=== PATIENT | female | born 1980 | race Caucasian/White ===

== ENCOUNTER 2016-08-17 17:14 | Emergency (ER) | payer BC | END 2016-08-17 19:09 | disposition left against medical advice (07) | LOC: UCCORT 17:14 | DX: R51 Headache (principal); R11.0 Nausea; Z53.21 Procedure and treatment not carried out due to patient leaving prior to being seen by health care provider ==

== ENCOUNTER 2016-08-17 20:23 | Emergency (ER) | payer BC ==
[2016-08-17 22:12] VITALS: BP 109/75
--- NOTE | 2016-08-17 22:50 | UC ---
Headache HPI - History Of Current Complaint Chief Complaint: UCGeneralIllness Stated Complaint: HEADACHE Time Seen by Provider: 08/17/16 22:50 Hx Last Menstrual Period: 08/13/16 - Allergies/Home Medications Allergies/Adverse Reactions: Allergies Allergy/AdvReac Type Severity Reaction Status Date / Time No Known Allergies Allergy Verified 08/17/16 22:12 Home Medications: Home Medications Ibuprofen TAB* [Advil TAB*] 600 mg PO Q6H PRN 08/17/16 [History Confirmed ] Levonorgestrel-Ethinyl Estradi [Seasonique] 1 tab PO DAILY 08/17/16 [History Confirmed 08/17/16] Meloxicam [Mobic] 7.5 mg PO DAILY PRN 08/17/16 [History Confirmed 08/17/16] PMH/Surg Hx/FS Hx/Imm Hx Endocrine History Of: Denies: Diabetes Cardiovascular History Of: Denies: Hypertension, Pacemaker/ICD Respiratory History Of: Reports: Asthma GI/ History Of: Denies: Renal Disease - Surgical History Surgical History: Yes Surgery Procedure, Year, and Place: WISDOM TEETH REMOVED - Social History Alcohol Use: Occasionally Substance Use Type: None Smoking Status (MU): Never Smoked Tobacco - Immunization History Most Recent Influenza Vaccination: Not the Season Physical Exam Vital Signs: Initial Vital Signs Temp 99.3 F 08/17/16 22:04 Pulse 74 08/17/16 22:04 Resp 16 08/17/16 22:04 BP 109/75 08/17/16 22:04 Pulse Ox 100 08/17/16 22:04
[2016-08-17] MEDS ORDERED: Prochlorperazine TAB* 10 MG PO ONE (23:11)
[2016-08-17] MEDS ORDERED: Prochlorperazine TAB* 5 MG ONE (23:14)
--- NOTE | 2016-08-17 23:43 | UC ---
Headache HPI - HPI Summary HPI Summary: PATIENT ARRIVES WITH CC OF MIGRAINE BOLANOS, DIZZINESS, HEAD PRESSURE, NAUSEA, PHOTOPHOBIA AND PHONOPHOBIA. SHE STATES SHE HAS NEVER BEEN DIAGNOSED WITH MIGRAINES BEFORE, BUT STATES SHE MAY HAVE THEM D/T HER SYMPTOMS. SHE DOES HAVE SEVERE ALLERGIES AND FOR SEVERAL YEARS WAS GETTING ALLERGY SHOTS WEEKLY UNTIL SHE WAS UNABLE TO AFFORD IT. SINCE THEN, SHE HAS BEEN TRYING TO GET BY WITH CLARITIN. SHE STATES THIS FEELS VERY SIMILAR TO HER PREVIOUS ALLERGY SYMPTOMS. DENIES V/D/C BUT ENDORSES NAUSEA. DENIES AURAS OR SCOTOMAS. BOLANOS IS LOCATED POSTERIORLY OVER OCCIPITAL LOBE. SHE STATES IT FEELS LIKE A SINUS INFECTION, BUT DENIES RHINNORHEA OR SPUTUM PRODUCTION. - History Of Current Complaint Chief Complaint: UCGeneralIllness Stated Complaint: HEADACHE Time Seen by Provider: 08/17/16 22:50 Hx Obtained From: Patient Hx Last Menstrual Period: 08/13/16 ?: No Onset/Duration: Sudden Onset Onset Of Symptoms: Sudden Initially Headache Was: Initial Pain Scale(0-10)= - 8 Currently Pain Is: Current Pain Scale(0-10)= - 6 Pain Intensity: 6 Pain Scale Used: 0-10 Numeric Timing: Intermittent, Lasting: - 30 MIN Character: Pressure Location of Headache: Occipital Aggravating Factor: Bright Lights Allevating Factors: Medication - IBUPROFEN Associated Signs And Symptoms: Positive: Dizziness, Nausea - Risk Factors SAH Risk Factors: Negative, Smoking SDH Risk Factors: Negative Temporal Arteritis Risk Factors: Negative - Allergies/Home Medications Allergies/Adverse Reactions: Allergies Allergy/AdvReac Type Severity Reaction Status Date / Time No Known Allergies Allergy Verified 08/17/16 22:12 Home Medications: Home Medications Ibuprofen TAB* [Advil TAB*] 600 mg PO Q6H PRN 08/17/16 [History Confirmed ] Levonorgestrel-Ethinyl Estradi [Seasonique] 1 tab PO DAILY 08/17/16 [History Confirmed 08/17/16] Meloxicam [Mobic] 7.5 mg PO DAILY PRN 08/17/16 [History Confirmed 08/17/16] PMH/Surg Hx/FS Hx/Imm Hx Previously Healthy: Yes Endocrine History Of: Denies: Diabetes Cardiovascular History Of: Denies: Hypertension, Pacemaker/ICD Respiratory History Of: Reports: Asthma GI/ History Of: Denies: Renal Disease - Surgical History Surgical History: Yes Surgery Procedure, Year, and Place: WISDOM TEETH REMOVED - Social History Occupation: Employed Full-time Lives: With Family Alcohol Use: Occasionally Substance Use Type: None Smoking Status (MU): Never Smoked Tobacco - Immunization History Most Recent Influenza Vaccination: Not the Season Review of Systems Constitutional: Fatigue Skin: Negative Eyes: Photophobia ENT: Negative, Other - SINUS PRESSURE AND EAR PAIN Respiratory: Negative Cardiovascular: Negative Motor: Negative Musculoskeletal: Negative Neurological: Headache All Other Systems Reviewed And Are Negative: Yes Physical Exam Triage Information Reviewed: Yes Appearance: Well-Appearing, No Pain Distress, Well-Nourished Vital Signs: Initial Vital Signs Temp 99.3 F 08/17/16 22:04 Pulse 74 08/17/16 22:04 Resp 16 08/17/16 22:04 BP 109/75 08/17/16 22:04 Pulse Ox 100 08/17/16 22:04 Vital Signs Reviewed: Yes Eye Exam: Normal Eyes: Positive: Conjunctiva Clear ENT: Positive: Normal ENT inspection, Pharynx normal, TMs normal Dental Exam: Normal Neck exam: Normal Neck: Positive: Supple, Nontender, No Lymphadenopathy Respiratory Exam: Normal Respiratory: Positive: Chest non-tender, Lungs clear Cardiovascular Exam: Normal Cardiovascular: Positive: RRR Abdominal Exam: Normal Abdomen Description: Positive: Nontender, No Organomegaly Musculoskeletal Exam: Normal Musculoskeletal: Positive: Strength Intact, ROM Intact Neurological Exam: Normal Neurological: Positive: Alert Psychological: Positive: Normal Response To Family, Age Appropriate Behavior Skin Exam: Normal Headache Course/Dx - Course Course Of Treatment: MECLIZINE, COMPAZINE AND FIORCET GIVEN FOR SYMPTOMS. FOLLOW UP WITH PCP. INSTRUCTIONS ON HOW TO TAKE FIORCET GIVEN AND EDUCATED PATIENT ON MIGRAINES. I HAVE NOT DIAGNOSED HER WITH A MIGRAINE, BUT HAVE GIVEN INFORMATION. - Differential Dx/Diagnosis Differential Diagnosis/HQI/PQRI: Migraine, Sinus Headache, Temporal Arteritis, Tension Headache Provider Diagnoses: HEADACHE, ALLERGIES Discharge - Discharge Plan Condition: Stable Disposition: HOME Prescriptions: Butalb/Acetamin/Caff TAB* [Fioricet TAB*] 1 tab PO Q6H PRN #20 tab MDD 4 PRN Reason: Headache Meclizine TAB* [Antivert 12.5 TAB*] 12.5 mg PO TID PRN #12 tab MDD 3 PRN Reason: Dizziness Prochlorperazine TAB* [Compazine Tab*] 10 mg PO Q6H PRN #10 tab PRN Reason: Nausea Patient Education Materials: Migraine Headache (ED) Referrals: Elida Perea MD [Primary Care Provider] - Additional Instructions: Take Ibuprofen, compazine and benadryl at night for relief. Fiorcet - take up to 4 times daily as needed for BOLANOS. Works better if taken at first onset of BLOANOS. This has caffeine, do not take at night.
== END 2016-08-17 23:22 | disposition home or self-care (01) ==
LOC: UCCORT 20:23
DX: R51 Headache (principal); J30.89 Other allergic rhinitis
CPT/HCPCS: 99212; A9270-GY; G0463; Q0164

== ENCOUNTER 2018-06-22 15:45 | Emergency (ER) | payer BC ==
[2018-06-22 17:15] VITALS: BP 123/69
--- NOTE | 2018-06-22 17:42 | UC ---
Ear Complaint HPI - HPI Summary HPI Summary: 37 year old female here with a chief complaint of left ear pain. Patient has chronic sinus congestion for weeks. Left ear pains been the last several days. No recent fevers. No chest congestion no difficulty breathing. Pain medications help decrease the pain but then the pain returns. - History of Current Complaint Chief Complaint: UCEar Stated Complaint: LEFT EAR COMPLAINT Time Seen by Provider: 06/22/18 17:29 Hx Last Menstrual Period: 05/11/18 Pain Intensity: 6 - Allergies/Home Medications Allergies/Adverse Reactions: Allergies Allergy/AdvReac Type Severity Reaction Status Date / Time No Known Allergies Allergy Verified 06/22/18 17:11 PMH/Surg Hx/FS Hx/Imm Hx Previously Healthy: Yes Respiratory History: Asthma - Surgical History Surgical History: Yes Surgery Procedure, Year, and Place: WISDOM TEETH REMOVED - Family History Known Family History: Positive: Non-Contributory - Social History Alcohol Use: Occasionally Substance Use Type: None Smoking Status (MU): Never Smoked Tobacco - Immunization History Most Recent Influenza Vaccination: Not the Review of Systems All Other Systems Reviewed And Are Negative: Yes Constitutional: Positive: Negative Skin: Positive: Negative Eyes: Positive: Negative ENT: Positive: Ear Ache, Nasal Discharge, Sinus Congestion, Sinus Pain/ Tenderness Respiratory: Positive: Negative Cardiovascular: Positive: Negative Gastrointestinal: Positive: Negative Motor: Positive: Negative Neurovascular: Positive: Negative Musculoskeletal: Positive: Negative Neurological: Positive: Negative Psychological: Positive: Negative Is Patient Immunocompromised?: No Physical Exam Triage Information Reviewed: Yes Appearance: Well-Appearing, No Pain Distress, Well-Nourished Vital Signs: Initial Vital Signs Temp 98.5 F 06/22/18 17:10 Pulse 87 06/22/18 17:10 Resp 14 06/22/18 17:10 BP 123/69 06/22/18 17:10 Pulse Ox 99 06/22/18 17:10 Vital Signs Reviewed: Yes Eye Exam: Normal Eyes: Positive: Conjunctiva Clear ENT: Positive: Pharynx normal, Nasal congestion, Nasal drainage, TM bulging - left, TM red - left Neck exam: Normal Neck: Positive: Supple Respiratory: Positive: Lungs clear, Normal breath sounds, No respiratory distress Cardiovascular: Positive: RRR Musculoskeletal Exam: Normal Musculoskeletal: Positive: Strength Intact, ROM Intact Neurological Exam: Normal Neurological: Positive: Alert, Muscle Tone Normal Psychological Exam: Normal Psychological: Positive: Age Appropriate Behavior Skin Exam: Normal Ear Complaint Course/Dx - Differential Dx/Diagnosis Provider Diagnosis: Left otitis media Discharge - Sign-Out/Discharge Documenting (check all that apply): Patient Departure All imaging exams completed and their final reports reviewed: No Studies - Discharge Plan Condition: Stable Disposition: HOME Prescriptions: Amoxicillin/Clavulanate TAB* [Augmentin TAB 875*] 875 mg PO BID #20 tab Patient Education Materials: Ear Infection (ED) Referrals: Surekha Reyes MD [Primary Care Provider] - Additional Instructions: FOLLOW UP WITH YOUR DOCTOR IF NOT COMPLETELY IMPROVED. GET RECHECKED FOR ANY WORSENING OF YOUR CONDITION OR QUESTIONS OR CONCERNS. - Billing Disposition and Condition Condition: STABLE Disposition: Home
== END 2018-06-22 17:46 | disposition home or self-care (01) ==
LOC: UCCORT 15:45
DX: H66.92 Otitis media, unspecified, left ear (principal); R09.81 Nasal congestion; J45.909 Unspecified asthma, uncomplicated
CPT/HCPCS: 99212; G0463

== ENCOUNTER 2019-04-24 07:04 | Emergency (ER) | payer BC ==
[2019-04-24 07:19] VITALS: BP 122/75
--- NOTE | 2019-04-24 07:27 | UC ---
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 - History of Current Complaint Chief Complaint: UCRespiratory Stated Complaint: COLD ISSUES Time Seen by Provider: 04/24/19 07:21 Hx Obtained From: Patient Hx Last Menstrual Period: 03/26/19 Onset/Duration: Gradual Onset, Lasting Days Timing: Constant Severity Initially: Mild Severity Currently: Moderate Pain Intensity: 0 Pain Scale Used: 0-10 Numeric Character: Cough: Productive Associated Signs And Symptoms: Positive: Fever, Chills, Nasal Congestion, Hoarseness, Sinus Discomfort - Allergies/Home Medications Allergies/Adverse Reactions: Allergies Allergy/AdvReac Type Severity Reaction Status Date / Time No Known Allergies Allergy Verified 04/24/19 07:12 Home Medications: Home Medications D-Methorphan/PE/Acetaminophen [Vicks Dayquil Cold & Flu 10-5-325 mg/15Ml] 1 liq PO PRN 04/24/19 [History] Magnesium Oxide [Magnesium] 200 mg PO DAILY 04/24/19 [History Confirmed 04/24/19 ] PMH/Surg Hx/FS Hx/Imm Hx Previously Healthy: Yes Respiratory History: Asthma - Surgical History Surgical History: Yes Surgery Procedure, Year, and Place: WISDOM TEETH REMOVED - Family History Known Family History: Positive: Cardiac Disease, Hypertension, Diabetes, Non- Contributory - Social History Alcohol Use: Occasionally Substance Use Type: None Smoking Status (MU): Never Smoked Tobacco Household Exposure Type: Cigarettes - Immunization History Most Recent Influenza Vaccination: Not the Season Review of Systems All Other Systems Reviewed And Are Negative: Yes Constitutional: Positive: Fever, Chills, Fatigue ENT: Positive: Sore Throat, Nasal Discharge, Sinus Congestion, Sinus Pain/ Tenderness Respiratory: Positive: Cough Cardiovascular: Positive: Chest Pain - with cough Gastrointestinal: Positive: Negative Genitourinary: Positive: Negative Motor: Positive: Negative Neurovascular: Positive: Negative Musculoskeletal: Positive: Negative Neurological: Positive: Negative Psychological: Positive: Negative Physical Exam Triage Information Reviewed: Yes Appearance: Well-Appearing, No Pain Distress, Well-Nourished Vital Signs: Initial Vital Signs Temp 98.1 F 04/24/19 07:14 Pulse 83 04/24/19 07:14 Resp 16 04/24/19 07:14 BP 122/75 04/24/19 07:14 Pulse Ox 99 04/24/19 07:14 Vital Signs Reviewed: Yes Eyes: Positive: Conjunctiva Clear ENT: Positive: Hearing grossly normal, Pharyngeal erythema, Uvula midline. Negative: Nasal congestion, Tonsillar swelling, Tonsillar exudate, Dental tenderness, Sinus tenderness Dental Exam: Normal Neck: Positive: Supple, Nontender, Enlarged Nodes @ - ant cerv Respiratory: Positive: Lungs clear, Normal breath sounds, No respiratory distress, No accessory muscle use Cardiovascular: Positive: RRR, No Murmur Musculoskeletal: Positive: ROM Intact, No Edema Neurological: Positive: Alert Psychological Exam: Normal Skin Exam: Normal Respiratory Course/Dx - Course Course Of Treatment: strep (-) influenza (-) - Differential Dx/Diagnosis Provider Diagnosis: Viral URI with cough Discharge ED - Sign-Out/Discharge Documenting (check all that apply): Patient Departure All imaging exams completed and their final reports reviewed: No Studies - Discharge Plan Condition: Stable Disposition: HOME Prescriptions: Benzonatate CAP* [Tessalon CAP*] 100 - 200 mg PO TID PRN #28 cap PRN Reason: Cough Patient Education Materials: Upper Respiratory Infection (ED) Referrals: Surekha Reyes MD [Primary Care Provider] - 4 Days (if not better) - Billing Disposition and Condition Condition: STABLE Disposition: Home
[2019-04-24 07:49] LABS: Influenza A Molecular NEGATIVE (Negative); Influenza B Molecular NEGATIVE (Negative)
== END 2019-04-24 08:04 | disposition home or self-care (01) ==
LOC: UCCORT 07:04
DX: J06.9 Acute upper respiratory infection, unspecified (principal); R05 Cough; J45.909 Unspecified asthma, uncomplicated; R07.9 Chest pain, unspecified
CPT/HCPCS: 87651; 99212; G0463